=== PATIENT | female | born 1950 | race Caucasian/White ===

== ENCOUNTER 2016-07-17 22:12 | Emergency (ER) | payer OTHER ==
[~2016-07-17] VITALS: Ht 170.2 cm; Wt 81.8 kg
[~2016-07-17 22:12] MED LIST: BISO10TA PO; ESTR1PAT13 TD; OMEP-113 PO; TRIA1CAP5 PO
[2016-07-17 22:19] VITALS: BP 131/91; PULSE 125; RESP 17; O2SAT 99
--- NOTE | 2016-07-17 22:59 | ED.REPORT ---
HPI-General Illness Date of Service July 17, 2016 ED Provider: Dr. Champagne Pt is a 66 y/o female w/ a hx of unspecified paroxysmal tachycardia, HTN, iron deficiency anemia, presenting to the ED c/o rapid heart palpitations onset 19: 00 today. The patient was laying down at time of onset doing nothing strenuous. She has experienced similar symptoms previously and was told it was "a tachycardia" and has been given a medicine for it previously which she states stopped her heart for 1 second. She had 1 cup of coffee this morning and a [employer] doubleshot decaf coffee later in the day. She took an extra Bisoprolol tonight to attempt to decrease her heart rate with no appreciable success. She has not had an ablation or seen an pipe connector. Pt denies CP, SOB, recent illness, abdominal pain, fever, chills, N/V/D, syncope. She denies any recent surgery, hx of DVT or PE. Records indicate 2 visits for palpitations, one diagnosis being paroxysmal atrial fibrillation and another being reentry tachycardia. She later relates that her symptoms are sometimes brought on by bending over. Nursing Notes Stated Complaint: RACING HEART Chief Complaint: Dysrhythmia/Cardiac Nursing Notes Reviewed: Yes Allergies: Coded Allergies: diltiazem (Verified Allergy, Unknown, 08/11/14) naproxen (Verified Allergy, Unknown, 08/11/14) trolamine salicylate (Verified Allergy, Unknown, 08/11/14) Scheduled Bisoprolol Fumarate (Bisoprolol Fumarate) 10 Mg Tablet 20 MG PO DAILY Estradiol (Vivelle-Dot) 1 Each Patch.tdsw 1 EACH TD twice weekly Omeprazole Magnesium (Omeprazole) 20 Mg Capsule.dr 20 MG PO BID Triamterene/HCTZ 37.5-25 mg (Triamterene/HCTZ 37.5-25 mg) 1 Each Capsule 1 EACH PO DAILY General Time Seen by MD: 22:59 Chief Complaint Other Hx Obtained From: Patient Sudden in Onset?: Yes Onset Occurred: 1 - 4 hours ago Symptom Duration: Since onset Severity: Current: No pain currently Severity: Maximum: No pain Recent Healthcare: Previous diagnosis Similar Sx Previous: Yes Past Medical History Past Medical History Notes: Iron deficiency anemia followed by ekg technician Dr. Cortez Past Medical History Hx of palpitations likely SVT Hypertension Small bowel ulcer Hx colon polyps Irone deficiency anemia GERD Past Surgical History Hysterectomy Smoking History Never Smoker Ambulatory Status Independent Review of Systems Full Review of Systems Constitutional: Denies: Chills, Fever Respiratory: Denies: Non-productive cough, Shortness of breath Cardiovascular: Reports: Palpitations, Denies: Chest pain, Dyspnea on exertion, Syncope GI: Denies: Abdominal pain, Diarrhea, Nausea, Vomiting Complete sys rev & neg: except as marked. Physical Exam Vital Signs Vital Signs Date Time Temp Pulse Resp B/P Pulse Ox O2 Delivery O2 Flow Rate FiO2 07/18/16 02:22 72 16 121/72 99 Room Air 07/18/16 00:58 78 16 123/71 99 Room Air 07/18/16 00:00 87 16 131/77 97 Room Air 07/17/16 23:55 87 16 151/83 98 Room Air 07/17/16 22:19 36.4 125 17 131/91 99 Room Air Initial VS: Reviewed, Vital signs abnormal Head / Eyes: Atraumatic, Normocephalic, PERRL ENT: Mucous membranes moist, Conjunctiva normal, No scleral icterus Neck: Supple, Full range of motion Respiratory: Breath sounds normal, Clear to auscultation, No respiratory distress Abdomen / GI: Soft, Non-tender, No guarding, No rebound, No distention Extremities: Vascular intact, Neuro intact, No swelling, No tenderness Skin: Warm, Dry, No cyanosis Neurologic: Alert, Oriented, Nonfocal Psychiatric: Mood/affect normal, Behavior normal, Normal thought content General/Constitutional: Awake, Alert, No acute distress, Well appearing, Cooperative, Not toxic appearing Cardiovascular: Regular rhythm, Heart sounds NL, No gallop, No murmurs, No rubs , Cap refill not delayed, Peripheral circulation NL, Pulses = bilaterally Heart Rate / Rhythm: Positive: Tachycardia Interpretation & Diagnostics Lab Results Interpretation Result Diagram: 07/17/16 2325 07/17/16 2325 Test 07/17/16 23:25 07/18/16 01:15 White Blood Count 5.6th/mm3 (3.8-10.1) Red Blood Count 4.45mil/mm3 (3.90-5.20) Hemoglobin 12.8g/dL (12.0-15.6) Hematocrit 39.4% (35.0-46.0) Mean Corpuscular Volume 88.5fL (81-100) Mean Corpuscular Hemoglobin 28.8pg (27.0-35.0) Mean Corpuscular Hemoglobin Concent 32.5% (32.0-37.0) Red Cell Distribution Width 15.6% (12.3-15.4) Platelet Count 261bil/L (150-400) Neutrophils (%) (Auto) 49.2% (40-74) Lymphocytes (%) (Auto) 34.3% (14-46) Monocytes (%) (Auto) 12.7% (4-12) Eosinophils (%) (Auto) 2.9% (0-5) Basophils (%) (Auto) 0.7% (0-3) D-Dimer < 0.50mg/L FEU (<0.50) Sodium Level 141mEq/L (134-144) Potassium Level 4.0mEq/L (3.5-5.2) Chloride Level 101mEq/L (97-108) Carbon Dioxide Level 23mmol/L (18-29) Blood Urea Nitrogen 21mg/dL (8-27) Creatinine 0.73mg/dL (0.57-1.00) Estimat Glomerular Filtration Rate 115mL/min (>59) Glucose Level 130mg/dL (60-99) Calcium Level 9.5mg/dL (8.5-10.1) Magnesium Level 2.0mg/dL (1.6-2.6) Total Bilirubin 0.3mg/dL (0.0-1.2) Aspartate Amino Transf (AST/SGOT) 24U/L (0-50) Alanine Aminotransferase (ALT/SGPT) 29U/L (0-32) Alkaline Phosphatase 85U/L (25-165) Pro-B-Type Natriuretic Peptide 549.0pg/mL (0-287) Total Protein 7.1g/dL (6.4-8.4) Albumin 4.1g/dL (3.4-5.0) Troponin T 0.010ug/L (0.0-0.011) Thyroid Stimulating Hormone (TSH) 1.570uIU/mL (0.450-4.500) Free Thyroxine 0.97ng/dL (0.82-1.77) ECG Interpretation ECG Interpretation: Sinus tachycardia rate 126 Question SVT vs Atrial flutter ST depression II, III, avF, V3-V6 Minor ST elevation aVR and aVL Not consistent with STEMI Time: 23:13 Interpreted by: ED physician ECG Interpretation: S/p adenosine All prior abnormalities have resolved Time: 00:15 Interpreted by: ED physician Normal ECG Interpretation: Normal ECG w/ rate of... (85), Normal rate, Normal sinus rhythm, No acute ischemic changes, Normal QRS, Normal axis, Normal intervals, Adequate tracing Procedures SVT Treatment Converted to narrow complex sinus rhythm. There are now discernable P waves. Time: 23:45 Procedure Performed by: ED physician Consent / Timeout / Setup: Informed consent provided, Consent from patient, Time-out performed, Oxygen administered, Pulse oximeter applied, nurse monitoring applied Bearing Down - Valsalva: Unsuccessful Adenosine IV Attempt # 1: Dose 6mg IVP, Successful, Patient in NSR Post-Procedure: Complete relief, No complications, Tolerated procedure well, Patient stable Re-Eval/Medical Decision Med Decision/Clinical Course Patient presented with a narrow complex tachycardia that looked like a reentrant supraventricular tachycardia. There were no P waves. The rhythm was regular and the QRS was not widened. I think that it was only 130 bpm because she took an extra dose of her beta alexa. Either way she received IV adenosine and this converted her to a normal sinus rhythm. Initial EKG had abnormal ST segments however I believe this is just due to the conduction of the supraventricular tachycardia. We did however observe her and perform serial troponins. Her troponin never bumped. Her discharge EKG was normal. She is in sinus rhythm with a rate of 66. Her blood pressure was 120/65. I copied the EKGs before during and after the adenosine. I sent these with her. I am going to send a note to Dr. Sykes as well as her primary care. Recommend close outpatient follow-up. Source of Hx: Old records Time of Eval: 23:49 Re-Evaluation/Progress Note: Adenosine given with success. Feels better. Time of Eval: 00:12 Re-Evaluation/Progress Note: Pt rechecked. HR 80, BP 130, sinus rhythm, appears well, asymptomatic. Counseled Regarding: Diagnosis, Lab results, Need for follow-up, When/why to return to ED Discharge & Departure Primary Impression: SVT (supraventricular tachycardia) Disposition: Home Discharge Condition All VS Reviewed: Yes Condition: Stable Patient Instructions: Supraventricular Tachycardia (ED) Additional Instructions: Take a copy of your EKGs with you when you follow-up. Call Dr. Buenrostro's office tomorrow and tell them you were seen in the emergency department for a supraventricular tachycardia and you have been referred for electrophysiology evaluation. Stay on your usual dose of medications. Return if any problems or any new or worsening symptoms. Also call your primary care physician set up a follow-up as well. I will have a copy of my note sent both the physicians. The laboratory work including your electrolytes and thyroid test were normal. Your 2 heart blood tests were normal. Your blood clot screening blood test was negative. Referrals: Izabela Rice MD (PCP) Boston Buenrostro MD Crit Care Except Billable Proc Time Spent: 30-74 minutes (60 minutes) Services Performed: Patient management by me, Time spent at bedside, Reviewing test results, Reviewing imaging, Discussing patient care, Documentation in record, Time with fam/surrogate Scribe Attestation Portions of this note were transcribed by Corona Dalton. I, Dr. Champagne personally performed the history, physical exam and medical decision-making; I reviewed and confirmed the accuracy of the information in the transcribed note. Signed by Mauricio Strong, 07/17/16 - 23:15 copies to: Boston Buenrostro MD; Izabela Rice MD, Todd P DO July 17, 2016 22:59 CORONA DALTON July 17, 2016 23:16
[2016-07-17] MEDS ORDERED: 0.9% Sodium Chloride 1,000 ML IV ONE (23:17)
[2016-07-17] MEDS ORDERED: Adenosine 3 mg/mL 2 mL Inj IVPUSH ONE ×2 (23:20)
[2016-07-17 23:38] LABS: BASOPHILS % (AUTO) 0.7 % (0-3); EOSINOPHILS % (AUTO) 2.9 % (0-5); MONOCYTES % (AUTO) 12.7 % (4-12); Mean Corpuscular Hemoglobin 28.8 pg (27.0-35.0); Mean Corpuscular Volume 88.5 fL (81-100); NEUTROPHILS % (AUTO) 49.2 % (40-74); Platelet Count 261 bil/L (150-400)
[2016-07-17] MEDS ORDERED: MeTOProlol 1 mg/mL 5 mL Inj IVPUSH SCH (23:50)
[2016-07-17 23:55] VITALS: BP 151/83; PULSE 87; RESP 16; O2SAT 98
[2016-07-18] VITALS: BP 131/77; PULSE 87; RESP 16; O2SAT 97
[2016-07-18 00:11] LABS: TROPONIN T 0.01 ug/L (0.0-0.011)
[2016-07-18 00:58] VITALS: BP 123/71; PULSE 78; RESP 16; O2SAT 99
[2016-07-18 02:22] VITALS: BP 121/72; PULSE 72; RESP 16; O2SAT 99
--- NOTE | 2016-07-18 09:21 | DRSVH ---
PROCEDURE: X-RAY CHEST ONE VIEW, PORTABLE ([id number]) INDICATIONS: tachycardia TECHNIQUE: One view of the chest was acquired. COMPARISON: [facility], , CHEST 1VW (PORTABLE), 07/07/2009, 23:53. [facility], CR, CHEST 1VW (PORTABLE), 04/26/2009, 22:47. FINDINGS: Surgical changes and devices: None. Lungs and pleura: No pleural effusions or pneumothorax. Lungs are clear. Mediastinum: Mediastinal contours appear normal. Heart size is normal. Bones and chest wall: No suspicious bony lesions. Overlying soft tissues appear unremarkable. IMPRESSION: No sign of CHF, heart size within normal limits. Dictated by: Jaden Klein M.D. on 07/18/2016 at 9:06 Approved by: Jaden Klein M.D. on 07/18/2016 at 9:20
== END 2016-07-18 02:23 | disposition home or self-care (01) ==
LOC: SED 22:12
DX: I47.1 Supraventricular tachycardia (principal); I10 Essential (primary) hypertension; K21.9 Gastro-esophageal reflux disease without esophagitis; Z88.8 Allergy status to other drugs, medicaments and biological substances
CPT/HCPCS: 36415; 71010; 80053; 83735; 83880; 84439; 84443; 84484; 85025; 85378; 93005; 96361; 96374; 96375; 99291; J0153; J7030

== ENCOUNTER 2016-09-25 00:01 | Day surgery (SDC) | payer OTHER ==
[~2016-09-25] VITALS: Ht 170.2 cm; Wt 80.5 kg
[2016-09-25] VITALS (13 sets, daily range): BP systolic 115–135; BP diastolic 61–75; PULSE 69–87; RESP 12–19; O2SAT 94–99
[~2016-09-25 00:01] MED LIST changes: +ACET-2605 PO; +MULT-666 PO
[2016-09-25 06:46] LABS: BASOPHILS % (AUTO) 0.5 % (0-3); EOSINOPHILS % (AUTO) 2.9 % (0-5); MONOCYTES % (AUTO) 10.1 % (4-12); Mean Corpuscular Hemoglobin 28.8 pg (27.0-35.0); Mean Corpuscular Volume 88.7 fL (81-100); NEUTROPHILS % (AUTO) 39.1 % (40-74); Platelet Count 196 bil/L (150-400)
--- NOTE | 2016-09-25 06:55 | NUR ---
Patient admitted for SVTY ablation with dr Buenrostro. She is accompanied by her .
[2016-09-25] MEDS ORDERED: Heparin 10,000 Unit/1,000 mL NS Premix IV ONE (08:13)
[2016-09-25] MEDS ORDERED: fentaNYL-PF 50 mCg/mL 2 mL Inj ONE (08:14)
[2016-09-25] MEDS ORDERED: Heparin 1,000 Unit/mL 10 mL Inj ONE (08:14)
[2016-09-25] MEDS ORDERED: Ondansetron 2 mg/mL 2 mL Inj IVPUSH PRN (10:35)
[2016-09-25] MEDS ORDERED: HYDROcodone-APAP 5-325 mg Tablet PO PRN (10:35)
--- NOTE | 2016-09-25 13:33 | PROCED ---
[address] [address] PROCEDURE NOTE PATIENT: JAEL WHITTINGTON : 1950 MR#: [id number] ADMIT: 09/25/2016 JOB ID: [id number] DATE OF SERVICE: 09/25/2016 PREOPERATIVE DIAGNOSIS(ES): Paroxysmal supraventricular tachycardia. POSTOPERATIVE DIAGNOSIS(ES): Atrioventricular (AV) elmo reentry tachycardia, status post slow pathway modification. PROCEDURES PERFORMED: 1. Comprehensive electrophysiology study with left atrial pacing recording via the coronary sinus catheter. 2. Three-dimensional electroanatomic mapping using the CARTO 3 system. 3. Slow pathway modification (atrial ablation; supraventricular tachycardia ablation). 4. Arrhythmia provocation with isoproterenol. 5. Fluoroscopy. SURGEON: Boston Buenrostro MD ASSISTANTS: Rolanda Young. ANESTHESIA: Very gentle dosing of Versed and fentanyl were utilized for an appropriate level of sedation. INDICATION: The patient is a pleasant, 66-year-old woman, with a structurally normal heart, who has recurrent refractory supraventricular tachycardia. After discussion of risks and benefits of catheter based mapping ablation, she opted to proceed. PROCEDURAL DESCRIPTION: Following informed consent, the patient is taken to the EP laboratory in a fasting state where she was prepped and draped in the usual sterile fashion. The bilateral groins were infiltrated with 1% lidocaine. Then, using modified Seldinger technique, two 6-Serbian sheaths were inserted in the right femoral vein. A 7 and 8-Serbian sheath were inserted in the left femoral vein. Under fluoroscopic guidance, a deflectable decapolar catheter was advanced to the coronary sinus with the most proximal bipoles at the os of the sinus. A CRD 2 catheter was advanced to the His position. A Prashant quadripolar catheter was advanced to the RV apex. A comprehensive electrophysiology study was undertaken with right atrial pacing recording, right ventricular pacing recording, His bundle recording and left atrial pacing recording via the coronary sinus catheter. RV pacing showed a concentric atrial activation pattern. Antegrade conduction showed an antegrade jump and ultimately induction of the patient's clinical tachycardia which was a narrow irregular tachycardia with a VA time of 0 msec induced with an antegrade jump. RV apical entrainment led to a long post pacing interval minus tachycardia cycle length with a VAV response. This was all consistent with AV elmo reentry tachycardia. A 4 mm area F curve non-irrigated ablation catheter was brought to the field. This created a three-dimensional electroanatomic map of the right atrium and triangle of Patel. Ablation lesions were placed at the base of the triangle of Patel anterior to the coronary sinus os in the region of the slow pathway. Ultimately, these lesions led to conducted junctional beats. Aggressive induction maneuvers were then undertaken, both on and off isoproterenol and during the washout phase. Post ablation, the patient did have an antegrade jump without echoes or inducible tachycardia. As such, all catheters and sheaths were removed. Manual pressure was held for hemostasis. The patient was transferred to the [facility] for monitoring, bedrest and discharge. COMPLICATIONS: None. ESTIMATED BLOOD LOSS: Negligible. FINDINGS: 1. Baseline rhythm is sinus with an RR interval of 627 msec, AR 162 msec, QRS 81 msec, QT 374 msec. 2. Intracardiac intervals: AH interval 116 msec, HV 50 msec. Post ablation, those intervals are 103 and 50 msec, respectively. 3. Retrograde conduction: Atrial activation is concentric. VA Wenckebach is 420 msec. VERP is 260 msec with a [address] 4. Antegrade conduction: Antegrade jump was seen with induction of AV elmo reentry tachycardia as described above. 5. Slow pathway modification for AV elmo reentrant tachycardia without inducible echoes or tachycardia post ablation. IMPRESSION: Successful slow pathway modification for atrioventricular (AV) elmo reentrant tachycardia. PLAN: 1. Bed rest x4 hours. 2. Continue current medication regimen including beta blockade, given it is used for hypertension concomitantly. 3. Follow up with Bhupendra Lomeli in the clinic in four weeks. ATTENDING STATEMENT: Boston Buenrostro MD, electrophysiology attending, was present for and supervised/performed all aspects of this procedure.
--- NOTE | 2016-09-25 14:41 | NUR ---
PT assisted to bedside and standing without any dizziness or pain. Pt assisted to BR.
== END 2016-09-25 23:59 | disposition home or self-care (01) ==
LOC: SOUO 00:01
PROVIDERS: ATTEND Internal Medicine Cardiovascular Disease
DX: I47.1 Supraventricular tachycardia (principal); I10 Essential (primary) hypertension; K21.9 Gastro-esophageal reflux disease without esophagitis; Z87.891 Personal history of nicotine dependence
CPT/HCPCS: 36415; 80048; 85025; 85610; 93005; 93613; 93621; 93623; 93653; 99152; 99153; C1730; C1732; J0131; J1644; J2250; J3010